=== PATIENT | male | born 1980 | race Asian ===

== ENCOUNTER 2017-09-20 18:35 | Outpatient (CLI) | payer OTHER | END 2017-09-20 18:39 | disposition short-term general hospital (02) | LOC: AMB 18:35 | DX: M54.2 Cervicalgia (principal); M54.89 Other dorsalgia; V49.88XA Car occupant (driver) (passenger) injured in other specified transport accidents, initial encounter; Y92.488 Other paved roadways as the place of occurrence of the external cause | CPT/HCPCS: A0425; A0427 ==

== ENCOUNTER 2017-09-20 18:43 | Emergency (ER) | payer OTHER ==
[~2017-09-20] VITALS: Ht 185.4 cm; Wt 90.7 kg
[2017-09-20 19:39] LABS: PLATELET COUNT 225 K/uL (142-355)
[2017-09-20 19:59] LABS: POTASSIUM 3.5 mmol/L (3.6-5.2); SODIUM 137 mmol/L (136-145)
[2017-09-20 21:30] VITALS: BP 126/81; TEMP 97.6
== END 2017-09-20 21:31 | disposition home or self-care (01) ==
LOC: ED 18:43
DX: S16.1XXA Strain of muscle, fascia and tendon at neck level, initial encounter (principal); S30.0XXA Contusion of lower back and pelvis, initial encounter; V43.52XA Car driver injured in collision with other type car in traffic accident, initial encounter
CPT/HCPCS: 80053; 80307; 81000; 85027; 96374; 99283; G0479; J2360